=== PATIENT | female | born 1970 | race Caucasian/White ===

== ENCOUNTER 2018-04-29 22:18 | Emergency (ER) | payer MEDICAID, OTHER ==
[~2018-04-29] VITALS: Ht 160 cm; Wt 77.1 kg
--- NOTE | 2018-04-29 22:33 | NUR ---
PT BIBS. C/O "HIT MY LEG ON SOMETHING 2 DAYS AGO, TRAYLOR HAS BEEN GETTING MORE RED" -SOB -ACUTE DISTRESS AOX4.
[2018-04-29] MEDS ORDERED: BACI/NEOM/POLY B OINT PKT 1 UDPKT PACKET ONE (22:38)
[2018-04-29] MEDS ORDERED: HYDROCODONE/APAP 5/325MG 1 EACH TABLET ONE (22:38)
[2018-04-29] MEDS ORDERED: CEPHALEXIN MONOHYDRATE 500 MG CAPSULE PO ONE (22:38)
[2018-04-29] MEDS ORDERED: SULFAMETH/TRIMETH 800/160 MG 1 UDTAB TABLET PO ONE (22:39)
[2018-04-29] MEDS: HYDROCODONE/APAP 5/325MG 1 EACH TABLET PO ONE (22:45)
[2018-04-29] MEDS: CEPHALEXIN MONOHYDRATE 500 MG CAPSULE PO ONE (22:45)
[2018-04-29] MEDS: SULFAMETH/TRIMETH 800/160 MG 1 UDTAB TABLET PO ONE (22:45)
[2018-04-29] MEDS: BACI/NEOM/POLY B OINT PKT 1 UDPKT PACKET TP ONE (22:45)
[2018-04-29 23:15] VITALS: BP 118/72
== END 2018-04-29 23:16 | disposition home or self-care (01) ==
LOC: ER 22:32
DX: L03.115 Cellulitis of right lower limb (principal); F17.200 Nicotine dependence, unspecified, uncomplicated; Z98.51 Tubal ligation status
CPT/HCPCS: 99284; A4606